=== PATIENT | female | born 1970 | race Hispanic/Latino ===

== ENCOUNTER 2022-06-28 15:47 | Emergency (ER) | payer SELFPAY ==
[2022-06-28] MEDS ORDERED: NA CHLORIDE 0.9% 1,000 ML ONE (16:11)
[2022-06-28] MEDS ORDERED: INSULIN -REGULAR HUMAN 50 UNIT/0.5 ML ML ONE (16:11)
[2022-06-28] MEDS ORDERED: LEVALBUTEROL 1.25 MG/3 ML NEB ONE (16:11)
[2022-06-28 16:18] LABS: Arterial Blood Carboxyhemoglob 1.7 % (0-1.5); Blood Gas Oxyhemoglobin 93.9 % (94-97)
[2022-06-28 17:07] LABS: BUN Blood Urea Nitrogen 35 mg/dL (7-18); Glomerular Filtration Rate 32 ml/min (=/>90); Glucose Level 839 mg/dL (74-106); Potassium 4.3 mmol/L (3.5-5.1); Sodium Level 131 mmol/L (136-145)
--- NOTE | 2022-06-28 17:08 | RAD REPORT ---
EXAM DESCRIPTION: RAD - Chest Single View - 06/28/2022 5:00 pm CLINICAL HISTORY: SOB Chest pain. COMPARISON: No comparisons FINDINGS: Portable technique limits examination quality. Left lung base opacity most compatible with pneumonia. Mild right lung base opacity could be atelecta sis or small infiltrate. The heart is normal in size. No displaced fractures. IMPRESSION: Left lower lobe pneumonia suspected.
[2022-06-28 17:09] LABS: Bicarbonate < 8 mmol/L (21-32)
[2022-06-28 17:29] LABS: Absolute Lymphocytes (CBC) 0.7 K/uL (0.7-4.9); Hematocrit 38.3 % (36.0-45.0); Lymphocytes % 2.2 % (15.3-44.8); MCV 95.7 fL (80-100); MPV 8.7 fL (7.6-11.3)
[2022-06-28 17:34] LABS: Blood Morphology Comment NOT SEEN (NOT SEEN); Platelet Estimate INCR
[2022-06-28] MEDS ORDERED: CEFTRIAXONE 1000 MG/VIAL ONE (17:34)
[2022-06-28] MEDS ORDERED: INSULIN -REGULAR HUMAN 100 UNIT in NA CHLORIDE 0.9% 100 ML IV SCH (17:45)
[2022-06-28 18:35] LABS: SARS-CoV-2 Antigen Rapid Res Negative (Negative)
--- NOTE | 2022-06-28 18:39 | EDPHYS ---
Physician Documentation [facility] Name: Velma Delgado Age: 52 yrs Sex: Female : 1970 Arrival Date: 06/28/2022 Time: 15:50 Bed 20 Private MD: ED Physician Sd Toussaint HPI: 06/28 16:03 This 52 yrs old Female presents to ER via Wheelchair with complaints of Flu jmm Symptoms. 16:03 The patient or guardian reports cough. Onset: The symptoms/episode began/occurred jmm gradually, 3 day(s) ago. Is a 52-year-old female with history of diabetes mellitus the presents emerged part with complaints of cough, congestion. Symptoms began around Monday. Patient was diagnosed with asthma. states that the patient has not been herself. Denies vomiting. Patient takes metformin for diabetes mellitus.. 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 - Social history:: Smoking status: Patient denies any tobacco usage or history of. ROS: 16:03 Constitutional: Positive for body aches. jmm 16:03 Respiratory: Positive for cough, wheezing. 16:03 Neuro: Positive for altered mental status. 16:03 All other systems are negative. Exam: 16:03 Constitutional: This is a well developed, well nourished patient who is awake, alert, jmm and in no acute distress. Head/Face: atraumatic. Eyes: EOMI, no conjunctival erythema appreciated ENT: Moist Mucus Membranes Neck: Trachea midline, Supple Chest/axilla: Normal chest wall appearance and motion. 16:03 Abdomen/GI: Non distended Back: Normal ROM Skin: General appearance color normal MS/ Extremity: Moves all extremities, no obvious deformities appreciated, no edema noted to the lower extremities Neuro: Awake and alert Psych: Behavior is normal, Mood is normal, Patient is cooperative and pleasant 16:03 Cardiovascular: Rate: tachycardic, Rhythm: regular. 16:03 Respiratory: mild respiratory distress is noted, Respirations: tachypnea, Breath sounds: wheezing: that is moderate, is heard in the left lower lobe. Vital Signs: 15:58 BP 142 / 57; Pulse 116; Resp 13; Temp 98.1(O); Pulse Ox 100% on R/A; Weight 60.33 kg; mb9 Height 5 ft. 0 in. (152.40 cm); Pain 0/10; 16:39 BP 138 / 59; Pulse 116; Resp 30; Pulse Ox 100% on R/A; mb9 17:43 BP 131 / 94; Pulse 125; Resp 32; Pulse Ox 99% on R/A; mb9 19:29 BP 137 / 71; Pulse 120; Resp 30; Pulse Ox 95% on R/A; mb9 15:58 Body Mass Index 25.97 (60.33 kg, 152.40 cm) 9 MDM: 16:03 Patient medically screened. [facility] 18:36 Data reviewed: vital signs, nurses notes. Consideration of Admission/Observation [facility] Patient was admitted/placed on observation. I considered the following discharge prescriptions or medication management in the emergency department Medications were administered in the Emergency Department. See MAR. Counseling: I had a detailed discussion with the patient and/or guardian regarding: the historical points, exam findings, and any diagnostic results supporting the discharge/admit diagnosis, lab results, radiology results, the need to transfer to another facility. ED course: Advised by administration to transfer every patient. I discussed the patient with Dr. Shah whom accepted the patient to his service.. 06/28 16:03 Order name: CBC with Diff [facility] 06/28 16:03 Order name: BMP [facility] 06/28 16:03 Order name: Lactate w/ 2H reflex if indic. [facility] 06/28 16:04 Order name: Blood Culture Adult (2) [facility] 06/28 16:05 Order name: ABG [facility] 06/28 16:05 Order name: glucometer results - FOR PT WITH NO ID 06/28 16:05 Order name: Glucose 06/28 16:36 Order name: ABG Arterial Blood Gas; Complete Time: 17:04 EDMS 06/28 17:05 Order name: Lactate w/ 2H reflex if indic.; Complete Time: 17:05 EDID 06/28 17:09 Order name: Basic Metabolic Panel; Complete Time: 17:10 EDMS 06/28 17:10 Order name: Glucose Level; Complete Time: 17:12 EDMS 06/28 17:35 Order name: CBC with Automated Diff; Complete Time: 17:35 EDMS 06/28 17:35 Order name: Manual Differential; Complete Time: 17:35 EDMS 06/28 17:42 Order name: SARS-COV-2 Antigen Rapid 06/28 16:03 Order name: Saline Lock; Complete Time: 16:40 [facility] 06/28 16:04 Order name: Chest Single View XRAY [facility] 06/28 17:08 Order name: RAD; Complete Time: 17:09 EDMS 06/28 18:01 Order name: Blood Culture EDID 06/28 18:35 Order name: SARS-COV-2 Antigen Rapid; Complete Time: 18:42 EDMS 06/28 19:15 Order name: Glucose Level; Complete Time: 19:16 EDMS 06/28 19:59 Order name: Glucose, Ancillary Testing EDID 06/28 20:21 Order name: Glucose Level EDID 06/28 18:11 Order name: Larson; Complete Time: 18:39 mb9 Administered Medications: 14:30 Drug: NS 0.9% 1000 ml Route: IV; Rate: 1 bolus; Site: left antecubital; mb9 16:14 Drug: Xopenex (levalbuterol) (3) 1.25 mg Route: Inhalation; mb9 16:32 Drug: Insulin Regular Human 10 units {Co-Signature: ko1 (Ivette Soliman RN).} Route: IVP; mb9 Site: left antecubital; 19:40 Follow up: Response: No adverse reaction mb9 17:43 Drug: Rocephin (cefTRIAXone) 1 grams Route: IV; Rate: calculated rate; Site: left mb9 antecubital; 19:40 Follow up: Response: No adverse reaction mb9 18:05 Drug: Insulin Drip - (Insulin Regular Human 100 units, NS 0.9% 100 ml) {Co-Signature: mb9 ko1 (Ivette Soliman RN).} Route: IV; Rate: calculated rate; Site: left antecubital; 19:15 Follow up: Rate change 12 units/kg; Per protocol, rate increased to 12 units/hr and 6 mb9 unit bolus x1. 20:27 Follow up: Rate change 24 units/kg; per protocol, insulin increased to 24 units/hr mb9 Disposition Summary: 06/28/22 18:38 Transfer Ordered Transfer Location: Other Acute Care Facility [facility] Reason: Higher level of care jmm Condition: Stable jmm Problem: new jmm Symptoms: are unchanged jmm Accepting Physician: Dr. Shah(06/28/22 20:35) mb9 Diagnosis - Diabetic ketoacidosis jmm - Community-acquired pneumonia jmm Forms: - Medication Reconciliation Form jmm - SBAR form jmm Signatures: Dispatcher [employer] EDMS Juanis Gaffney Joel, PA PA jmm Breneman, Mary Beth RN RN mb9 Ivette Soliman RN ko1 Corrections: (The following items were deleted from the chart) 18:11 17:46 Labs - recollect needed ordered. bd mb9 18:12 18:11 GLUCOSE+C.LAB.BRZ ordered. EDMS EDMS 19:40 19:28 GLUCOSE+C.LAB.BRZ ordered. EDMS EDMS 20:35 18:38 Dr. Shah [facility] mb9
--- NOTE | 2022-06-28 18:39 | ER ---
Nurse's Notes [facility] Name: Velma Delgado Age: 52 yrs Sex: Female : 1970 Arrival Date: 06/28/2022 Time: 15:50 Bed 20 Private MD: Diagnosis: Diabetic ketoacidosis;Community-acquired pneumonia Presentation: 06/28 15:58 Chief complaint: Spouse and/or significant other states: "We took her to the doctor on mb9 Monday because she wasn't feeling well, they told her it was Asthma. She started getting worse the past couple days and has no appetite and hasn't been eating. She isn't acting like herself". Coronavirus screen: Vaccine status: Patient reports receiving the 2nd dose of the covid vaccine. Ebola Screen: No symptoms or risks identified at this time. Initial Sepsis Screen: Does the patient meet any 2 criteria? No. Patient's initial sepsis screen is negative. Does the patient have a suspected source of infection? No. Patient's initial sepsis screen is negative. Risk Assessment: Do you want to hurt yourself or someone else? Patient reports no desire to harm self or others. Onset of symptoms was June 25, 2022. 15:58 Method Of Arrival: Wheelchair mb9 15:58 Acuity: CORRIE 2 mb9 Triage Assessment: 16:03 General: Appears ill. Pain: Denies pain. Neuro: Level of Consciousness is lethargic, mb9 Oriented to person, place, time, situation. Respiratory: Airway is patent. Derm: Skin is intact, Skin is dry, Skin is pale, Skin temperature is cool. Musculoskeletal: pt had to be carried out of passenger seat of car. Pt unable to walk and is weak. 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 - Social history:: Smoking status: Patient denies any tobacco usage or history of. Screenin:02 [facility] ED Fall Risk Assessment (Adult) History of falling in the last 3 months, mb9 including since admission No falls in past 3 months (0 pts) Confusion or Disorientation No (0 pts) Intoxicated or Sedated No (0 pts) Impaired Gait No (0 pts) Mobility Assist Device Used No (0 pt) Altered Elimination No (0 pt) Score/Fall Risk Level 0 - 2 = Low Risk. Abuse screen: Denies threats or abuse. Nutritional screening: No deficits noted. Tuberculosis screening: No symptoms or risk factors identified. Assessment: 16:14 Reassessment: RT at bedside. mb9 16:35 Reassessment: first set of blood cultures sent. mb9 17:35 Reassessment: second set of blood cultures sent. mb9 17:43 General: Appears ill. Pain: Denies pain. Neuro: Level of Consciousness is awake, obeys mb9 commands, lethargic, Oriented to person, place, time, situation, Appropriate for age. Cardiovascular: Rhythm is sinus tachycardia. Respiratory: Airway is patent Respiratory effort is even, Respiratory pattern is tachypnea pt intermittently coughing Breath sounds with crackles in left upper lobe, left lower lobe, left posterior upper lobe and left posterior lower lobe. Derm: Skin is intact, Skin is dry, Skin is pale. Musculoskeletal: Range of motion: limited in all extremities, Reports weakness in entire body. 18:40 Reassessment: No changes from previously documented assessment. Patient and/or family mb9 updated on plan of care and expected duration. Pain level reassessed. Patient is alert, oriented x 3, equal unlabored respirations, skin warm/dry/pink. Derm: Skin is pale, Skin temperature is warm. 19:03 Reassessment: Gave report to transferring nurse at [facility]. mb9 19:28 Reassessment: No changes from previously documented assessment. Patient and/or family mb9 updated on plan of care and expected duration. Pain level reassessed. Patient is alert, oriented x 3, equal unlabored respirations, skin warm/dry/pink. 20:28 Reassessment: Report given to [facility]. mb9 Vital Signs: 15:58 BP 142 / 57; Pulse 116; Resp 13; Temp 98.1(O); Pulse Ox 100% on R/A; Weight 60.33 kg; mb9 Height 5 ft. 0 in. (152.40 cm); Pain 0/10; 16:39 BP 138 / 59; Pulse 116; Resp 30; Pulse Ox 100% on R/A; mb9 17:43 BP 131 / 94; Pulse 125; Resp 32; Pulse Ox 99% on R/A; mb9 19:29 BP 137 / 71; Pulse 120; Resp 30; Pulse Ox 95% on R/A; mb9 15:58 Body Mass Index 25.97 (60.33 kg, 152.40 cm) mb9 ED Course: 15:50 Patient arrived in ED. mr 15:53 Mir Esteves PA is PHCP. jmm 15:54 Sd Toussaint DO is Attending Physician. m 15:58 Yoly Barron, ELBA is Primary Nurse. mb9 15:58 Arm band placed on. mb9 16:01 Triage completed. mb9 16:02 Placed in gown. Bed in low position. Call light in reach. Side rails up X 1. Client mb9 placed on continuous cardiac and pulse oximetry monitoring. NIBP monitoring applied. clinical research monitor on. 16:02 No provider procedures requiring assistance completed. mb9 16:30 Inserted saline lock: 20 gauge in left antecubital area, using aseptic technique. Blood mb9 collected. 16:40 Glucose Sent. mb9 16:41 BMP Sent. mb9 16:41 CBC with Diff Sent. mb9 17:19 Missed attempt(s): 22 gauge in right hand. rs5 17:35 Second set of blood cultures drawn. Inserted saline lock: 22 gauge in right antecubital tm3 area, using aseptic technique. 17:36 attempting to transfer pt to [facility], have not been able to connect with transfer center. 18:11 SARS-COV-2 Antigen Rapid Sent. mb9 18:39 Larson cath inserted, using sterile technique, 18 Fr., by ga, balloon inflated, to mb9 gravity drainage, returned augie urine. Patient tolerated well. 19:03 Patient transferred, IV remains in place. mb9 Administered Medications: 14:30 Drug: NS 0.9% 1000 ml Route: IV; Rate: 1 bolus; Site: left antecubital; mb9 16:14 Drug: Xopenex (levalbuterol) (3) 1.25 mg Route: Inhalation; mb9 16:32 Drug: Insulin Regular Human 10 units {Co-Signature: ko1 (Ivette Soliman RN).} Route: IVP; mb9 Site: left antecubital; 19:40 Follow up: Response: No adverse reaction mb9 17:43 Drug: Rocephin (cefTRIAXone) 1 grams Route: IV; Rate: calculated rate; Site: left 9 antecubital; 19:40 Follow up: Response: No adverse reaction mb9 18:05 Drug: Insulin Drip - (Insulin Regular Human 100 units, NS 0.9% 100 ml) {Co-Signature: mb9 ko1 (Ivette Soliman RN).} Route: IV; Rate: calculated rate; Site: left antecubital; 19:15 Follow up: Rate change 12 units/kg; Per protocol, rate increased to 12 units/hr and 6 mb9 unit bolus x1. 20:27 Follow up: Rate change 24 units/kg; per protocol, insulin increased to 24 units/hr mb9 Medication: 16:02 VIS not applicable for this client. mb9 Intake: 20:00 IV: 1000ml; Total: 1000ml. mb9 Output: 20:00 Urine: 900ml (Larson); Total: 900ml. mb9 Outcome: 18:38 ER care complete, transfer ordered by . lisa 19:03 Transferred by ground EMS to [facility], Transfer form completed. mb9 19:03 Condition: stable 19:03 Instructed on the need for transfer. 20:35 Patient left the ED. mb9 Signatures: Juanis Gaffney, Mohan tm3 Mir Esteves PA PA jmm Rivera, Mary mr Breneman, Yoly Beard, RN RN mb9 Sean Hdz rs5 Ivette Soliman RN ko1 Corrections: (The following items were deleted from the chart) 19:41 19:40 Response: No adverse reaction; IV Status: Completed infusion mb9 mb9
[2022-06-28 21:04] VITALS: TEMP 98.1
[2022-06-28 21:08] VITALS: BP 137/71; O2SAT 95
== END 2022-06-28 20:35 ==
LOC: ER 15:47
DX: J18.9 Pneumonia, unspecified organism (principal); E11.10 Type 2 diabetes mellitus with ketoacidosis without coma; Z20.822 Contact with and (suspected) exposure to COVID-19
CPT/HCPCS: 36415; 71045; 80048; 82805; 82947; 83605; 85025; 87040; 87811; J1815; J7030; J7614

== ENCOUNTER 2024-02-29 10:24 | Emergency (ER) | payer SELFPAY ==
--- NOTE | 2024-02-29 12:12 | RAD REPORT ---
EXAM: Head Brain Wo Cont HISTORY: TRAUMA COMPARISON: None TECHNIQUE: Multiple contiguous axial images were obtained for a CT of the brain without contrast. Sag ittal and coronal reformats were performed. One or more of the following dose reduction techniques were used: Automated exposure control, adjus tment of the mA and kV according to patient size, and iterative reconstruction. Unless otherwise specified, incidental findings do not require dedicated imaging follow-up. FINDINGS: Lobulated densely calcified mass centered on the right greater wing of sphenoid, and adjoining tempor al calvarium, measuring 2.9 x 2.0 cm in greatest axial dimensions, and 2.1 cm in craniocaudal extent. No adjacent parenchymal edema. No evidence of hydrocephalus, intracranial hemorrhage, or extra-axial fluid collection. The brain is normal in morphology. The calvarium is otherwise intact. Right occipital scalp swelling and small hematoma. The visualized paranasal sinuses and mastoid air cells are essentially clear. IMPRESSION: No evidence of acute intracranial abnormality. Right occipital scalp swelling and small hematoma. Lobulated densely calcified mass centered on the right greater wing of sphenoid and adjoining tempora l calvarium, measuring up to 2.9 cm, may suggest a calcified meningioma.
--- NOTE | 2024-02-29 14:24 | ER ---
Nurse's Notes [facility] Name: Velma Delgado Age: 54 yrs Sex: Female : 1970 Arrival Date: 02/29/2024 Time: 10:24 Bed DX5 Private MD: Diagnosis: Fall on same level, unspecified;Contusion of scalp, initial encounter Presentation: 02/28 10:45 Chief complaint: Patient states: Fell at work yesterday, "knocked over by a child), hit ph back of head,no LOC, no blood thinners, was dizzy after incident, no dizziness today, no N/V or headache, hematoma to back of head. Coronavirus screen: Vaccine status: Patient reports receiving the 2nd dose of the covid vaccine. Ebola Screen: No symptoms or risks identified at this time. Initial Sepsis Screen: Does the patient meet any 2 criteria? No. Patient's initial sepsis screen is negative. Does the patient have a suspected source of infection? No. Patient's initial sepsis screen is negative. Risk Assessment: Do you want to hurt yourself or someone else? Patient reports no desire to harm self or others. Onset of symptoms was February 29, 2024. 10:45 Method Of Arrival: Ambulatory ph 10:45 Acuity: CORRIE 4 ph Triage Assessment: 10:48 General: Appears in no apparent distress. Behavior is calm, cooperative. Pain: Denies ph pain. Neuro: Level of Consciousness is awake, alert, obeys commands, Oriented to person, place, time, situation. Historical: - Allergies: 10:47 No Known Allergies; ph - PMHx: 10:47 diabetes mellitus; ph - PSHx: 10:47 section; ph - Immunization history:: Adult Immunizations unknown. - Infectious Disease History:: Denies. - Social history:: Smoking status: Patient denies any tobacco usage or history of. Screenin:30 Abuse screen: Denies threats or abuse. Denies injuries from another. Nutritional ss screening: No deficits noted. Tuberculosis screening: Never had TB. Assessment: 14:30 Reassessment: Patient appears in no apparent distress at this time. Patient and/or ss family updated on plan of care and expected duration. Pain level reassessed. Patient is alert, oriented x 3, equal unlabored respirations, skin warm/dry/pink. Vital Signs: 10:45 BP 159 / 72; Pulse 90; Resp 18; Temp 98; Pulse Ox 99% on R/A; Weight 64.41 kg; Height 5 ph ft. 0 in. ; 10:45 Body Mass Index 27.73 (64.41 kg, 152.4 cm) ph Devonte Coma Score: 10:49 Eye Response: spontaneous(4). Motor Response: obeys commands(6). Verbal Response: ph oriented(5). Total: 15. Trauma Score (Adult): 10:49 Eye Response: spontaneous(1); Verbal Response: oriented(1); Motor Response: obeys ph commands(2); Systolic BP: > 89 mm Hg(4); Respiratory Rate: 10 to 29 per min(4); [place] Score: 15; Trauma Score: 12 ED Course: 10:32 Patient arrived in ED. ra3 10:42 Irma Foster MD is Attending Physician. gb1 10:47 Triage completed. ph 10:47 Arm band placed on Patient placed in waiting room, Patient notified of wait time. ph 11:25 CT Head Brain wo Cont In Process Unspecified. EDMS 14:18 Demetrice Garcia, RN is Primary Nurse. ss 14:30 Patient has correct armband on for positive identification. ss 15:04 No provider procedures requiring assistance completed. Patient did not have IV access ss during this emergency room visit. Administered Medications: No medications were administered Medication: 14:30 VIS not applicable for this client. ss Outcome: 14:23 Discharge ordered by . gb1 14:30 Discharged to home ambulatory, ss 14:30 Condition: good 14:30 Discharge instructions given to patient, Instructed on discharge instructions, follow up and referral plans. Demonstrated understanding of instructions, follow-up care, 15:06 Patient left the ED. ss Signatures: Dispatcher [employer] EDMS Demetrice Garcia RN RN Wanda Estes RN RN Irma Foster MD MD gb1 Fabiola Gallegos ra3
--- NOTE | 2024-02-29 14:24 | EDPHYS ---
Physician Documentation [facility] Name: Velma Delgado Age: 54 yrs Sex: Female : 1970 Arrival Date: 02/29/2024 Time: 10:24 Bed DX5 Private MD: ED Physician Irma Foster HPI: 02/28 14:23 This 54 yrs old Female presents to ER via Ambulatory with complaints of Head gb1 Injury Without LOC-Adult, Dizziness. 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 She has a hematoma to the parietal scalp no active bleeding or any lacerations. She states that she felt dizzy after the fall but has been normal without any vomiting since the incident yesterday. She denies any headache or dizziness at this time. She has a history of diabetes.. Historical: - Allergies: 10:47 No Known Allergies; ph - PMHx: 10:47 diabetes mellitus; ph - PSHx: 10:47 section; ph - Immunization history:: Adult Immunizations unknown. - Infectious Disease History:: Denies. - Social history:: Smoking status: Patient denies any tobacco usage or history of. Exam: 14:23 Constitutional: This is a well developed, well nourished patient who is awake, alert, gb1 and in no acute distress. Head/Face: Patient has a small very tender but palpable hematoma of the parietal scalp. No scalp lacerations appreciated on exam. Eyes: Pupils equal round and reactive to light, extra-ocular motions intact. Lids and lashes normal. Conjunctiva and sclera are non-icteric and not injected. Cornea within normal limits. Periorbital areas with no swelling, redness, or edema. ENT: Nares patent. No nasal discharge, no septal abnormalities noted. Tympanic membranes are normal and external auditory canals are clear. Oropharynx with no redness, swelling, or masses, exudates, or evidence of obstruction, uvula midline. Mucous membranes moist. Neck: Trachea midline, no thyromegaly or masses palpated, and no cervical lymphadenopathy. Supple, full range of motion without nuchal rigidity, or vertebral point tenderness. No Meningismus. Chest/axilla: Normal chest wall appearance and motion. Nontender with no deformity. No lesions are appreciated. Cardiovascular: Regular rate and rhythm with a normal S1 and S2. No gallops, murmurs, or rubs. Normal PMI, no JVD. No pulse deficits. Respiratory: Lungs have equal breath sounds bilaterally, clear to auscultation and percussion. No rales, rhonchi or wheezes noted. No increased work of breathing, no retractions or nasal flaring. Abdomen/GI: Soft, non-tender, with normal bowel sounds. No distension or tympany. No guarding or rebound. No evidence of tenderness throughout. Back: No spinal tenderness. No costovertebral tenderness. Full range of motion. Skin: Warm, dry with normal turgor. Normal color with no rashes, no lesions, and no evidence of cellulitis. MS/ Extremity: Pulses equal, no cyanosis. Neurovascular intact. Full, normal range of motion. Neuro: Awake and alert, GCS 15, oriented to person, place, time, and situation. Cranial nerves II-XII grossly intact. Motor strength 5/5 in all extremities. Sensory grossly intact. Cerebellar exam normal. Normal gait. Vital Signs: 10:45 BP 159 / 72; Pulse 90; Resp 18; Temp 98; Pulse Ox 99% on R/A; Weight 64.41 kg; Height 5 ph ft. 0 in. ; 10:45 Body Mass Index 27.73 (64.41 kg, 152.4 cm) ph Story Coma Score: 10:49 Eye Response: spontaneous(4). Motor Response: obeys commands(6). Verbal Response: ph oriented(5). Total: 15. Trauma Score (Adult): 10:49 Eye Response: spontaneous(1); Verbal Response: oriented(1); Motor Response: obeys ph commands(2); Systolic BP: > 89 mm Hg(4); Respiratory Rate: 10 to 29 per min(4); Story Score: 15; Trauma Score: 12 MDM: 11:05 Medical Screening Exam initiated 14:23 Data reviewed: vital signs, nurses notes. 14:23 ED course: 54-year-old female with a same level fall scalp hematoma due to mechanical gb1 fall at work yesterday. CT scan is negative and I reviewed it myself for any acute intracranial injury no skull fracture or signs of subdural hematoma. Patient is at her normal mental status and at this time has a scalp hematoma without laceration. I will discharge her home as her mental status is at its baseline she is accompanied by her daughter who will take her home. I recommend NSAIDs for pain and rest until she feels better to go back to work.. 02/28 11:10 Order name: CT Head Brain wo Cont; Complete Time: 12:16 gb1 Administered Medications: No medications were administered Disposition Summary: 02/29/24 14:23 Discharge Ordered Notes: Location: Home gb1 Problem: new gb1 Symptoms: have improved gb1 Condition: Stable gb1 Diagnosis - Fall on same level, unspecified gb1 - Contusion of scalp, initial encounter gb1 Followup: gb1 - With: Private Physician - When: 1 - 2 days - Reason: If symptoms return, Further diagnostic work-up Discharge Instructions: - Discharge Summary Sheet gb1 - Hematoma, [id number] gb1 Forms: - Work release form ss - Medication Reconciliation Form gb1 - Antibiotic Education gb1 - Prescription Opioid Use gb1 - Patient Portal Instructions gb1 - Leadership Thank You Letter gb1 Signatures: Dispatcher [employer] Wanda Davies RN RN ph KristinIrma MD MD gb1
[2024-02-29 15:34] VITALS: BP 159/72; TEMP 98; O2SAT 99
== END 2024-02-29 15:06 | disposition home or self-care (01) ==
LOC: ER 10:24
DX: S00.03XA Contusion of scalp, initial encounter (principal); W18.30XA Fall on same level, unspecified, initial encounter; E11.9 Type 2 diabetes mellitus without complications
CPT/HCPCS: 70450; 99282